=== PATIENT | female | born 1970 | race Caucasian/White ===

== ENCOUNTER 2021-03-16 22:29 | Emergency (ER) | payer BC ==
[~2021-03-16 22:29] MED LIST: ASPIR 8181 MG PO; ATORVASTATIN CA40 MG PO; HUMALOG100 UNIT/1 SQ; HUMALOG100 UNIT/2 SQ; HYDROCODON-ACE1 EAC2 PO; LAMICTAL200 MG PO; LATUDA80 MG PO; LEVAQUIN750 MG PO; LEVOTHYROXINE112 MCG PO; LEVOTHYROXINE137 MCG PO; LYRICA100 MG PO; LYRICA75 MG PO; MACROBID 100 M100 MG PO; MIRALAX17 GM PO; MOXIFLOXACIN H400 MG PO; MYSOLINE50 MG PO; OMEPRAZOLE20 M1 PO; PROPRANOLOL HCL20 MG PO; VENLAFAXINE HC150 MG PO; VENLAFAXINE HCL75 M2 PO; VITAMIN D250000 UNIT PO
[2021-03-16 23:21] LABS: HEMOGLOBIN 14.9 gm/dl (12.3-15.3); RED BLOOD COUNT 5.1 M/UL (4.00-5.10); WHITE BLOOD COUNT 8.9 K/UL (4.5-11.0)
[2021-03-16 23:45] LABS: BUN/CREATININE RATIO 14 (0-10)
[2021-03-17] MEDS ORDERED: PREDNISONE 50 M50 MG PO (00:54)
[2021-03-17] MEDS ORDERED: TESSALON PERLE100 MG PO (00:54)
[2021-03-17] MEDS ORDERED: PROVENTIL HFA6.7 GM INH (00:54)
== END 2021-03-17 01:22 | disposition home or self-care (01) ==
LOC: ER1 22:29
PROVIDERS: Physician Assistant
DX: J44.1 Chronic obstructive pulmonary disease with (acute) exacerbation (principal); E11.9 Type 2 diabetes mellitus without complications; E03.9 Hypothyroidism, unspecified; F17.210 Nicotine dependence, cigarettes, uncomplicated; Z88.0 Allergy status to penicillin; Z90.49 Acquired absence of other specified parts of digestive tract; Z20.822 Contact with and (suspected) exposure to COVID-19
CPT/HCPCS: 71045; 80053; 82550; 82553; 83874; 83880; 84484; 85025; 93005; 94640; 94664; 96374; 99285; U0002

== ENCOUNTER → 2021-09-01 | Outpatient (CLI) | payer BC ==
[~2021-09-01] MED LIST changes: +PREDNISONE 50 M50 MG PO; +PROVENTIL HFA6.7 GM INH; +TESSALON PERLE100 MG PO
[2021-09-01 10:29] LABS: HEMOGLOBIN 13.8 gm/dl (12.3-15.3); RED BLOOD COUNT 4.91 M/UL (4.00-5.10); WHITE BLOOD COUNT 6.4 K/UL (4.5-11.0)
[2021-09-01 11:00] LABS: BUN/CREATININE RATIO 14 (0-10)
[2021-09-02 08:16] LABS: VITAMIN D, 25-HYDROXY 8.5 ng/mL (30.0-100.0)
[2021-09-02 11:16] LABS: RHEUMATOID ARTHRITIS FACTOR 10.2 IU/mL (<14.0)
== END ==
LOC: RAD 09:33
PROVIDERS: Family Medicine
DX: E78.5 Hyperlipidemia, unspecified (principal); M79.89 Other specified soft tissue disorders; M54.50 Low back pain, unspecified; I10 Essential (primary) hypertension; E55.9 Vitamin D deficiency, unspecified; M47.816 Spondylosis without myelopathy or radiculopathy, lumbar region
CPT/HCPCS: 36415; 72110; 73130; 80053; 80061; 83735; 84550; 85027; 86038; 86200; 86431